=== PATIENT | male | born 1965 | race Caucasian/White ===

== ENCOUNTER 2020-11-27 12:51 | Emergency (ER) | payer MEDICARE, MEDICAID, SELFPAY ==
--- NOTE | ~2020-11-27 | XR_ITS ---
EXAMINATION: XR CHEST CLINICAL INFORMATION: Chest pain COMPARISON: CT abdomen pelvis 07/25/2020 TECHNIQUE: Frontal view of the chest was obtained. FINDINGS: The heart and pulmonary vessels appear normal. Bibasilar atelectasis is present. No infiltrates, effusions or lung masses are seen. There has been prior left clavicular fracture with plate and screw device present. Old left-sided rib fractures are noted involving the third through fifth posterior lateral ribs. XR/XR chest 1V IMPRESSION: No acute intrathoracic disease. Bibasilar atelectasis.
--- NOTE | ~2020-11-27 | CT_ITS ---
EXAMINATION: CT ABDOMEN AND PELVIS WITHOUT CONTRAST CLINICAL INFORMATION: Abdominal distention COMPARISON: CT abdomen 07/25/2020 TECHNIQUE: Multidetector volumetric imaging was performed from the superior aspect of the liver through the pubic symphysis. Sagittal and coronal reformatted images were obtained on the technologist's workstation. This CT examination was performed using dose optimization techniques as appropriate, variously including the following: *Automated exposure control *Adjustment of mA and/or kV according to patient size (this includes techniques or standardized protocols for targeted exams where dose is matched to indication/reason for exam; i.e. extremities or head) *Use of iterative reconstruction technique DLP: 606 mGy-cm FINDINGS: LUNG BASES: Some tree-in-bud changes are present at the lung bases consistent with airway disease. Atelectasis is present at the left lung base. No pleural effusions are seen. LIVER, GALLBLADDER, AND BILIARY TREE: The liver is normal in size, shape, and attenuation. No focal hepatic lesion or biliary ductal dilatation is present. The gallbladder is unremarkable with no evidence of radiopaque gallstones, gallbladder wall thickening, or obvious pericholecystic inflammatory changes. PANCREAS: Unremarkable. SPLEEN: Unremarkable. ADRENAL GLANDS: Unremarkable. KIDNEYS AND URETERS: The kidneys are normal in size, shape, and attenuation. No hydronephrosis, hydroureter, or calculi seen. No perinephric stranding. BLADDER: Unremarkable. GASTROINTESTINAL TRACT: A hiatal hernia is present. Diverticular changes are present in the colon extensive in the proximal sigmoid with significant wall thickening/muscular hypertrophy. No definite evidence of diverticulitis. The small and large bowel are otherwise unremarkable. The appendix is unremarkable. ABDOMINAL WALL: A small periumbilical hernia seen containing only fat. LYMPH NODES: Again seen are small peripancreatic and víctor hepatis lymph nodes. No retroperitoneal lymphadenopathy is seen. VASCULAR: Unremarkable. PELVIC VISCERA: Prostate contains calcifications. The seminal vesicles appear normal. No ascites is present. OSSEOUS STRUCTURES: Mild degenerative changes present in the spine. CT/CT abdomen pelvis wo con IMPRESSION: 1. A cause for the patient's abdominal distention has not been found. 2. Incidental note made of some tree-in-bud changes at the lung bases, hiatal hernia and colonic diverticulosis with muscular hypertrophy but no diverticulitis.
--- NOTE | ~2020-11-27 | US_ITS ---
EXAMINATION: US VENOUS ULTRASOUND WITH DOPPLER LOWER EXTREMITY, BILATERAL CLINICAL INFORMATION: Bilateral lower extremity swelling and pain COMPARISON: None TECHNIQUE: Ultrasound of the deep veins is performed from the hip to the calf with compression sonography and color and pulse Doppler assessment. Spectral analysis with color-flow imaging is performed. FINDINGS: RIGHT: There is normal venous compression and respiratory variation and augmented flow. The visualized common femoral vein, superficial femoral vein, profunda femoral vein, popliteal vein, and the trifurcation region shows no evidence of deep venous thrombosis. There is no significant popliteal fossa cyst. Small lymph nodes noted in the right groin measuring 1.4-1.7 cm LEFT: There is normal venous compression and respiratory variation and augmented flow. The visualized common femoral vein, superficial femoral vein, profunda femoral vein, popliteal vein, and the trifurcation region shows no evidence of deep venous thrombosis. There is no significant popliteal fossa cyst. Small lymph node noted in the left groin measuring If the patient's symptoms persist, followup ultrasound in 5 days 7 days might be of value to exclude proximal propagation from a non-visualized calf vein. US/US venous duplex LE BI IMPRESSION: No DVT demonstrated in the either lower extremity.
[2020-11-27 15:50] VITALS: BP 150/89; PULSE 82; RESP 18; TEMP 36.7; O2SAT 99; BMI 27.6
[2020-11-27 16:17] LABS: MANUAL DIFF FLAG NO
[2020-11-27 16:20] LABS: Basophils Percent Auto 0.8 % (0-2); Eosinophils Absolute Auto 0.1 X10*3/uL (0.0-0.4); Eosinophils Percent Auto 1.4 % (0-4); Hematocrit 38.1 % (42-52); Hemoglobin 12.7 g/dl (14.0-18.0); Imm Gran Abs Auto 0.01 X10*3/uL (0.00-0.03); Imm Gran Pct Auto 0.2 % (0.0-0.4); Lymphocytes Absolute Auto 1.5 X10*3/uL (1.2-4.9); Lymphocytes Percent Auto 29.2 % (20-40); Mean Corpuscular HGB Conc 33.3 g/dl (31.0-36.0); Mean Corpuscular Hemoglobin 31.2 pg (27.0-33.0); Mean Corpuscular Volume 93.6 fL (80-98); Mean Platelet Volume 8.4 fL (9.4-12.4); Monocytes Absolute Auto 0.5 X10*3/uL (0.1-1.2); Monocytes Percent Auto 9.7 % (2-11); Neutrophils Percent Auto 58.7 % (45-73); Platelet Count 305 X10*3/uL (160-400); Red Blood Count 4.07 X10*6/uL (4.60-5.80); Red Cell Distribution Width 13.3 % (11.0-16.0)
[2020-11-27 16:40] LABS: Anion Gap 11 (12-20); Blood Urea Nitrogen 9 mg/dL (9-16); Calcium 8.7 mg/dL (8.4-10.2); Carbon Dioxide 28 mmol/L (22-29); Chloride 103 mmol/L (96-108); Creatinine Clr Calc Pharmacy 115.1; Estimated Glomerular Filt Rate > 60; Glucose Random 109 mg/dL (60-115); Potassium 3.9 mmol/L (3.3-5.1); Sodium 138 mmol/L (135-145)
[2020-11-27 18:15] VITALS: BP 147/89; PULSE 77; RESP 18; O2SAT 95
[2020-11-27 21:01] VITALS: BP 140/70; PULSE 95; RESP 16; O2SAT 95
--- NOTE | 2020-11-27 21:13 | ECG_ITS ---
Test Reason : SWOLLEN LEGS Blood Pressure : / mmHG Vent. Rate : 082 BPM Atrial Rate : 082 BPM P-R Int : 142 ms QRS Dur : 084 ms QT Int : 372 ms P-R-T Axes : 039 033 -08 degrees QTc Int : 434 ms Normal sinus rhythm Nonspecific T wave abnormality Abnormal ECG No previous ECGs available Referred By: Maggy Segura Electronically Signed By:NELSY ROBLES
--- NOTE | 2020-11-27 21:16 | ED.ABDPAIN ---
HPI - Abdominal Pain General Chief Complaint: Extremity Problem Stated Complaint: FEET LEG ABD SWELLING Time Seen by Provider: 11/27/20 21:07 Source: patient Mode of arrival: ambulatory Limitations: no limitations History of Present Illness HPI narrative: 55-year-old male with no significant past medical history presents with 4 days of abdominal pain and distention, and 2 days of lower extremity swelling. Patient states that he has not had a bowel movement several days and is having a difficult time walking because of the abdominal pain. He does not report fevers, chills, palpitations, shortness of breath, nausea, vomiting, diarrhea, dysuria, hematuria, weakness or loss of balance. Related Data Allergies Allergy/AdvReac Type Severity Reaction Status Date / Time No Known Allergies Allergy Verified 11/27/20 15:52 Review of Systems Review of Systems Constitutional: No Weight loss, No Fever, No Chills, No Night Sweats, No Fatigue, No Malaise ENT/Mouth: No Hearing loss, No Ear Pain, No Nasal Congestion, No Sinus Pain, No Hoarseness, No sore throat, No Rhinorrhea, No Swallowing Difficulty Eyes: No Eye Pain, No Swelling, No Redness, No Foreign Body, No Discharge, No Vision Changes Cardiovascular: No Chest Pain, No SOB, No Dyspnea on Exertion, No Orthopnea, positive Edema, No Palpitations Respiratory: No Cough, No Sputum, No Wheezing, No Smoke Exposure, No Dyspnea Gastrointestinal: No Nausea, no Vomiting, no Diarrhea, positive abdominal Pain, positive distention, positive constipation, No Hematochezia, No Melena Genitourinary: no irregular bleeding, No Dysuria, No Urinary Frequency, No Hematuria, No Urinary Incontinence, No Urgency, No Flank Pain, No Urinary Flow Changes, No Hesitancy Musculoskeletal: No joint pain, No Myalgias, No Joint Swelling Skin: No Skin Lesions, No rash Neuro: No Weakness, No Numbness, No Paresthesias, No Loss of Consciousness, No Dizziness, No Headache Psych: No Anxiety/Panic, No Depression, No SI/HI/AH/VH, No Social Issues Heme/Lymph: No Bruising, No Bleeding,No Lymphadenopathy Endocrine: No Polyuria, No Polydipsia, No Temperature Intolerance Yes all other systems are reviewed and are negative Physical Exam Vital Signs: Vital Signs: Last Vital Signs Temp 98.1 F 11/27/20 15:50 Pulse 90 11/27/20 23:10 Resp 17 11/27/20 23:10 BP 141/93 H 11/27/20 23:10 Pulse Ox 95 11/27/20 23:10 Body Mass Index 27.6 Appearance: Alert. Oriented X3. No acute distress. Eyes: Pupils equal, round and reactive to light. ENT: Pharynx normal. Neck: Normal inspection. Neck supple. CVS: Normal heart rate and rhythm. Pulses normal. Respiratory: No respiratory distress. Breath sounds normal. Abdomen: Soft and nontender to palpation, distended. Skin: Skin warm and dry. Normal skin color. Normal skin turgor. Extremities: +2 pitting bilateral lower extremities to the mid gonzalez, full range of motion, strength 5/5 Neuro: No motor deficit. No sensory deficit. Cranial nerves 2-12 intact, no focal neural deficit gait well balanced well coordinated Course Course Course Narrative: 55-year-old male presents with abdominal pain and distention, 4 days of constipation, and bilateral lower extremity swelling. Patient has an odd affect. Rule out ACS, CHF, bowel obstruction. CBC and Chem 7 are unremarkable, H&H 12.7/38.1 no prior lab values for comparison, troponin 0, BNP 0, EKG is normal sinus with no indication of ST elevation or depression however there are no others for comparison. Highly unlikely CHF, ACS. 11:20 p.m. EKG obtained from [facility] no significant changes, from EKG obtained today. When this OCCUPATIONAL HYGIENIST went in to discuss lab values and EKG, patient was kneeling on the ground in the dark, appears to been praying. CT scan of abdomen negative for obstruction or any acute findings. Patient was advised to follow up with primary care physician as he may need treatment for blood pressure with diuretic. When this and he went into his room to discuss discharge, patient was in prone position on the floor in his underwear, stated that he was trying to clean up the debris under the bed. Patient stated that he does not have a ride home, will try to obtain a ride-lift. Patient verbalized understanding of and agrees plan of care discharge home. MDM - Abdominal Pain Differential Diagnosis Differential diagnosis: Likely abdominal pain, bowel perforation, constipation and small bowel obstruction Medical Records Attestation: I reviewed the patient's medical records. Lab Data Attestation: I reviewed the patient's lab results. Result diagrams: 11/27/20 16:14 11/27/20 16:13 Labs: Lab Results 11/27/20 11/27/20 11/27/20 Range/Units 16:13 16:14 21:34 WBC 5.0 (4.8-10.8) X10*3/uL RBC 4.07 L (4.60-5.80) X10*6/uL Hgb 12.7 L (14.0-18.0) g/dl Hct 38.1 L (42-52) % MCV 93.6 (80-98) fL MCH 31.2 (27.0-33.0) pg MCHC 33.3 (31.0-36.0) g/dl RDW 13.3 (11.0-16.0) % Plt Count 305 (160-400) X10*3/uL MPV 8.4 L (9.4-12.4) fL Immature Gran % (Auto) 0.2 (0.0-0.4) % Neut % (Auto) 58.7 (45-73) % Lymph % (Auto) 29.2 (20-40) % Person % (Auto) 9.7 (2-11) % Eos % (Auto) 1.4 (0-4) % Baso % (Auto) 0.8 (0-2) % Lymph # (Auto) 1.5 (1.2-4.9) X10*3/uL Person # (Auto) 0.5 (0.1-1.2) X10*3/uL Eos # (Auto) 0.1 (0.0-0.4) X10*3/uL Baso # (Auto) 0.0 (0.0-0.2) X10*3/uL Abs Immat Gran (auto) 0.01 (0.00-0.03) X10*3/uL Absolute Neuts (auto) 3.0 (2.0-8.3) X10*3/uL Absolute Nucleated RBC 0.000 (0.0-0.012) X10*3/uL Nucleated RBC % (auto) 0.0 (0.0-0.2) /100WBC PT 11.1 (10.8-13.0) SEC INR 0.9 (0.9-1.1) APTT 35.4 (24.1-38.0) SEC Sodium 138 (135-145) mmol/L Potassium 3.9 (3.3-5.1) mmol/L Chloride 103 (96-108) mmol/L Carbon Dioxide 28 (22-29) mmol/L Anion Gap 11 L (12-20) BUN 9 (9-16) mg/dL Creatinine 0.79 (0.5-1.4) mg/dL Estim Creat Clear Calc 115.1 Estimated GFR > 60 Random Glucose 109 (60-115) mg/dL Calcium 8.7 (8.4-10.2) mg/dL Total Bilirubin (0.0-1.0) mg/dL Direct Bilirubin (0.0-0.5) mg/dL AST (5-37) U/L ALT (0-40) U/L Alkaline Phosphatase (39-117) U/L Troponin I High Sens (<3.5-35.0) ng/L B-Natriuretic Peptide (<100) pg/mL Total Protein (6.5-8.0) g/dL Albumin (3.5-5.0) g/dL Lipase (8-78) U/L COVID-19 (MARY) (Negative) COVID-19 Clin Com 11/27/20 11/27/20 11/27/20 Range/Units 21:34 21:34 21:34 WBC (4.8-10.8) X10*3/uL RBC (4.60-5.80) X10*6/uL Hgb (14.0-18.0) g/dl Hct (42-52) % MCV (80-98) fL MCH (27.0-33.0) pg MCHC (31.0-36.0) g/dl RDW (11.0-16.0) % Plt Count (160-400) X10*3/uL MPV (9.4-12.4) fL Immature Gran % (Auto) (0.0-0.4) % Neut % (Auto) (45-73) % Lymph % (Auto) (20-40) % Person % (Auto) (2-11) % Eos % (Auto) (0-4) % Baso % (Auto) (0-2) % Lymph # (Auto) (1.2-4.9) X10*3/uL Person # (Auto) (0.1-1.2) X10*3/uL Eos # (Auto) (0.0-0.4) X10*3/uL Baso # (Auto) (0.0-0.2) X10*3/uL Abs Immat Gran (auto) (0.00-0.03) X10*3/uL Absolute Neuts (auto) (2.0-8.3) X10*3/uL Absolute Nucleated RBC (0.0-0.012) X10*3/uL Nucleated RBC % (auto) (0.0-0.2) /100WBC PT (10.8-13.0) SEC INR (0.9-1.1) APTT (24.1-38.0) SEC Sodium (135-145) mmol/L Potassium (3.3-5.1) mmol/L Chloride (96-108) mmol/L Carbon Dioxide (22-29) mmol/L Anion Gap (12-20) BUN (9-16) mg/dL Creatinine (0.5-1.4) mg/dL Estim Creat Clear Calc Estimated GFR Random Glucose (60-115) mg/dL Calcium (8.4-10.2) mg/dL Total Bilirubin 0.5 (0.0-1.0) mg/dL Direct Bilirubin 0.2 (0.0-0.5) mg/dL AST 31 (5-37) U/L ALT 25 (0-40) U/L Alkaline Phosphatase 107 (39-117) U/L Troponin I High Sens < 3.5 (<3.5-35.0) ng/L B-Natriuretic Peptide < 10 (<100) pg/mL Total Protein 7.4 (6.5-8.0) g/dL Albumin 4.2 (3.5-5.0) g/dL Lipase 13 (8-78) U/L COVID-19 (MARY) Negative (Negative) COVID-19 Clin Com See Note Imaging Data Bilateral venous duplex: Attestation: I personally reviewed and interpreted this imaging study as follows: Radiologist's impression: EXAMINATION: US VENOUS ULTRASOUND WITH DOPPLER LOWER EXTREMITY, BILATERAL CLINICAL INFORMATION: Bilateral lower extremity swelling and pain COMPARISON: None TECHNIQUE: Ultrasound of the deep veins is performed from the hip to the calf with compression sonography and color and pulse Doppler assessment. Spectral analysis with color-flow imaging is performed. FINDINGS: RIGHT: There is normal venous compression and respiratory variation and augmented flow. The visualized common femoral vein, superficial femoral vein, profunda femoral vein, popliteal vein, and the trifurcation region shows no evidence of deep venous thrombosis. There is no significant popliteal fossa cyst. Small lymph nodes noted in the right groin measuring 1.4-1.7 cm LEFT: There is normal venous compression and respiratory variation and augmented flow. The visualized common femoral vein, superficial femoral vein, profunda femoral vein, popliteal vein, and the trifurcation region shows no evidence of deep venous thrombosis. There is no significant popliteal fossa cyst. Small lymph node noted in the left groin measuring If the patient's symptoms persist, followup ultrasound in 5 days 7 days might be of value to exclude proximal propagation from a non-visualized calf vein. US/US venous duplex LE BI IMPRESSION: No DVT demonstrated in the either lower extremity. Chest x-ray: Attestation: I personally reviewed and interpreted this imaging study as follows: Radiologist's impression: EXAMINATION: XR CHEST CLINICAL INFORMATION: Chest pain COMPARISON: CT abdomen pelvis 07/25/2020 TECHNIQUE: Frontal view of the chest was obtained. FINDINGS: The heart and pulmonary vessels appear normal. Bibasilar atelectasis is present. No infiltrates, effusions or lung masses are seen. There has been prior left clavicular fracture with plate and screw device present. Old left-sided rib fractures are noted involving the third through fifth posterior lateral ribs. XR/XR chest 1V IMPRESSION: No acute intrathoracic disease. Bibasilar atelectasis. CT abdomen pelvis: Attestation: I personally reviewed and interpreted this imaging study as follows: Radiologist's impression: FINDINGS: LUNG BASES: Some tree-in-bud changes are present at the lung bases consistent with airway disease. Atelectasis is present at the left lung base. No pleural effusions are seen. LIVER, GALLBLADDER, AND BILIARY TREE: The liver is normal in size, shape, and attenuation. No focal hepatic lesion or biliary ductal dilatation is present. The gallbladder is unremarkable with no evidence of radiopaque gallstones, gallbladder wall thickening, or obvious pericholecystic inflammatory changes. PANCREAS: Unremarkable. SPLEEN: Unremarkable. ADRENAL GLANDS: Unremarkable. KIDNEYS AND URETERS: The kidneys are normal in size, shape, and attenuation. No hydronephrosis, hydroureter, or calculi seen. No perinephric stranding. BLADDER: Unremarkable. GASTROINTESTINAL TRACT: A hiatal hernia is present. Diverticular changes are present in the colon extensive in the proximal sigmoid with significant wall thickening/muscular hypertrophy. No definite evidence of diverticulitis. The small and large bowel are otherwise unremarkable. The appendix is unremarkable. ABDOMINAL WALL: A small periumbilical hernia seen containing only fat. LYMPH NODES: Again seen are small peripancreatic and víctor hepatis lymph nodes. No retroperitoneal lymphadenopathy is seen. VASCULAR: Unremarkable. PELVIC VISCERA: Prostate contains calcifications. The seminal vesicles appear normal. No ascites is present. OSSEOUS STRUCTURES: Mild degenerative changes present in the spine. CT/CT abdomen pelvis wo con IMPRESSION: 1. A cause for the patient's abdominal distention has not been found. 2. Incidental note made of some tree-in-bud changes at the lung bases, hiatal hernia and colonic diverticulosis with muscular hypertrophy but no diverticulitis. ECG Data Attestation: I personally reviewed and interpreted this ECG as follows: ECG interpretation date: 11/27/20 ECG interpretation time: 22:30 Interpretation: Vent. rate 82 BPM MS interval 142 ms QRS duration 84 ms QT/QTc 372/434 ms P-R-T axes 39 33 -8 Normal sinus rhythm Nonspecific T wave abnormality Abnormal ECG No previous ECGs available Discharge Plan Discharge Clinical Impression: Bilateral leg edema Patient Disposition: Home, Self-Care Instructions: Edema (ED) Additional Instructions: You were evaluated for abdominal pain. CT scan is negative for acute findings requiring emergent intervention. Your 2nd complaint was bilateral lower extremity edema. If cardiac enzymes are negative, your BNP is negative, EKG is normal no changes compared to her prior EKG on 11/21/2020 obtained from [facility]. Please follow-up with primary care physician. You may need to be on a diuretic for this edema. Thank you for choosing this emergency department for evaluation. Please follow-up with primary care physician as needed. Return to the emergency department for any new, concerning, or worsening symptoms. Interventions: ED Discharge Assessment Last Done: 11/28/20 00:57 Discharge Date/Time: 11/28/20 00:58 [facility] Past Medical History Attestation statement: The following information was validated with the patient. Source: old records reviewed Social History Social History Advance Directives: No Advance Directives Information Provided: Yes
[2020-11-27] MEDS: Furosemide 40 MG/4 ML VIAL IVPUSH (21:32)
[2020-11-27 21:39] VITALS: BP 132/86
--- NOTE | 2020-11-27 21:40 | PC.NURSE ---
US is a bedside
[2020-11-27 21:45] LABS: INTERNATIONAL NORM RATIO 0.9 (0.9-1.1); Prothrombin Time 11.1 SEC (10.8-13.0)
[2020-11-27 21:48] LABS: Partial Thromboplastin Time 35.4 SEC (24.1-38.0)
[2020-11-27 22:02] LABS: COVID-19 Test Negative (Negative)
[2020-11-27 22:07] LABS: Alanine Aminotransferase 25 U/L (0-40); Albumin Level 4.2 g/dL (3.5-5.0); Alkaline Phosphatase 107 U/L (39-117); Aspartate Amino Transferase 31 U/L (5-37); Bilirubin Direct 0.2 mg/dL (0.0-0.5); Bilirubin Total 0.5 mg/dL (0.0-1.0); Lipase 13 U/L (8-78); Total Protein 7.4 g/dL (6.5-8.0)
[2020-11-27 22:12] LABS: B Type Natriuretic Peptide < 10 pg/mL (<100); Troponin-I High Sensitivity < 3.5 ng/L (<3.5-35.0)
[2020-11-27 23:10] VITALS: BP 141/93; PULSE 90; RESP 17; O2SAT 95
== END 2020-11-28 00:58 | disposition home or self-care (01) ==
PROVIDERS: Emergency Provider Nurse Practitioner Family; PCP Pediatrics
DX: R10.9 Unspecified abdominal pain (principal); R60.0 Localized edema; Z20.822 Contact with and (suspected) exposure to COVID-19
CPT/HCPCS: 36415; 71045; 74176; 80048; 80076; 83690; 83880; 84484; 85025; 85610; 85730; 87635; 93005; 93970; 96374; 99284; J1940